=== PATIENT | female | born 1950 | race Caucasian/White ===

== ENCOUNTER 2018-07-06 10:45 | Observation (INO) | payer MEDICARE, OTHER ==
[~2018-07-06] VITALS: Ht 165.1 cm; Wt 128.2 kg
--- NOTE | 2018-07-06 10:45 | NUR ---
Upon EMS arrival, pt taken straight to CT.
--- NOTE | 2018-07-06 11:07 | Diagnostic Imaging Report ---
Exam: Head CT without contrast History: Slurred speech. Comparison studies: None Technique: Axial images were obtained from the skull base to the vertex. Coronal and sagittal images reconstructed from the axial data. Dose modulation, iterative reconstruction, and/or weight based adjustment of the mA/kV was utilized to reduce the radiation dose to as low as reasonably achievable. Radiation dose: Total DLP: 921 mGy*cm. Estimated effective dose: DLP x 0.015 Intravenous contrast: None Findings: Scalp: No abnormalities. Bones: No fractures, blastic or lytic lesions. Brain sulci: Appropriate for age. Ventricles: Normal in size and configuration. No hydrocephalus. Extra-axial spaces: No masses, no fluid collection. Parenchyma: No abnormal densities. No masses, hemorrhage, acute or chronic vascular insults. Sellar/suprasellar region: No abnormalities. Craniocervical junction: Patent foramen magnum. No Chiari one malformation. Incidental findings: Calcified atherosclerosis in the carotid siphons and distal basilar artery. IMPRESSION: 1. No acute intracranial abnormalities. 2. Specifically, no mass, acute hemorrhage or cortical infarct. Signed by: Dr. Denis Amaro M.D. on 07/06/2018 11:03 AM
[2018-07-06 11:43] LABS: BASOPHILS % 0.3 % (0.0-1.0); EOSINOPHILS # (AUTO) 0.2 (0.0-0.4); EOSINOPHILS % 2.2 % (0.0-6.0); HEMATOCRIT 40.9 % (34.2-44.1); HEMOGLOBIN 13.4 g/dL (12.0-16.0); LYMPHOCYTES # (AUTO) 1.9 (1.0-3.2); LYMPHOCYTES % 28.9 % (18.0-39.1); MEAN CORPUSCULAR HEMOGLOBIN 28.6 pg (28-32); MEAN CORPUSCULAR HGB CONC 32.8 g/dL (31-35); MEAN CORPUSCULAR VOLUME 87.4 fL (81-99); MONOCYTES # (AUTO) 0.6 (0.2-0.8); MONOCYTES % 9.3 % (4.4-11.3); NEUTROPHILS # (AUTO) 3.9 (2.1-6.9); PLATELET COUNT 198 x10e3/uL (140-360); RED BLOOD COUNT 4.68 x10e6/uL (3.6-5.1); RED CELL DISTRIBUTION WIDTH 12.8 % (11.7-14.4)
[2018-07-06 11:52] LABS: INR 0.91; PROTHROMBIN TIME 13.1 seconds (11.9-14.5)
[2018-07-06] MEDS ORDERED: KETOROLAC TROMETHAMINE 30 MG/ML VIAL IV ONE (12:00)
[2018-07-06] MEDS ORDERED: ONDANSETRON HCL INJ 2MG/ML 2ML 2 MG/ML VIAL IV ONE (12:00)
[2018-07-06 12:07] LABS: ALANINE AMINOTRANSFERASE 13 IU/L (0-55); ALBUMIN 3.7 g/dL (3.5-5.0); ALKALINE PHOSPHATASE 65 IU/L (40-150); ANION GAP 13.6 mmol/L (8-16); BLOOD UREA NITROGEN 16 mg/dL (7-26); BUN/CREATININE RATIO 22 (6-25); CALCIUM 9.3 mg/dL (8.4-10.2); CARBON DIOXIDE 24 mmol/L (22-29); CHLORIDE 104 mmol/L (98-107); CREATINE KINASE 74 IU/L (29-168); CREATININE, SERUM 0.74 mg/dL (0.57-1.11); EST GLOMERULAR FILTRATION RATE > 60 ML/MIN (60-); GLUCOSE 88 mg/dL (74-118); POTASSIUM 3.6 mmol/L (3.5-5.1); SODIUM 138 mmol/L (136-145)
[2018-07-06 12:23] LABS: CLARITY,URINE SL CLOUDY (CLEAR); COLOR,URINE YELLOW (YELLOW)
[2018-07-06 12:24] LABS: BILIRUBIN,URINE 1+ (NEGATIVE); KETONES,URINE NEGATIVE (NEGATIVE); LEUKOCYTE ESTERASE ,URINE NEGATIVE (NEGATIVE); NITRITE,URINE NEGATIVE (NEGATIVE); PROTEIN,URINE DIPSTICK NEGATIVE (NEGATIVE); URINE UROBILINOGEN 0.2 mg/dL (0.2 - 1)
[2018-07-06 12:28] LABS: THYROID STIMULATING HORMONE 1.945 uIU/mL (0.350-4.940)
--- NOTE | 2018-07-06 12:30 | Diagnostic Imaging Report ---
EXAMINATION: CHEST SINGLE (PORTABLE) INDICATION: Slurred speech. COMPARISON: None FINDINGS: TUBES and LINES: None. LUNGS: Mild elevation of the right hemidiaphragm. Single surgical clip projected on the lower right hemithorax. Mild prominence of the pulmonary vasculature may be due to technique. There is no evidence of pneumonia or pulmonary edema. PLEURA: No pleural effusion or pneumothorax. HEART AND MEDIASTINUM: The cardiomediastinal silhouette is mildly enlarged. BONES AND SOFT TISSUES: No acute osseous lesion. Soft tissues are unremarkable. UPPER ABDOMEN: No free air under the diaphragm. IMPRESSION: Mild cardiomegaly. Possible mild bilateral pulmonary venous congestion. Signed by: Dr. Mikey Diaz M.D. on 07/06/2018 12:27 PM
[2018-07-06 13:14] LABS: AMORPHOUS SEDIMENT,URINE MODERATE (FEW); BACTERIA,URINE MANY /HPF; EPITHELIAL CELLS,URINE MODERATE /LPF; RBC,URINE 0-5 /HPF (0-5)
[2018-07-06] MEDS ORDERED: SODIUM CHLORIDE 0.9% 1000ML 1,000 ML IV ONE (13:45)
[2018-07-06] MEDS ORDERED: ONDANSETRON HCL INJ 2MG/ML 2ML 2 MG/ML VIAL IV PRN (13:45)
[2018-07-06] MEDS ORDERED: ASPIRIN 81 MG CHEW TAB PO ONE (14:00)
--- OUTSIDE RECORDS SUMMARY | 2018-07-06 14:34 | XMS REPORT ---
Author [facility] Address Unknown Phone Unavailable Care Team Providers Care Solar Manufacturer'S Representative Name Role Phone Silvia BENSON Unavailable Unavailable Problems This patient has no known problems. Allergies, Adverse Reactions, Alerts This patient has no known allergies or adverse reactions. Medications This patient has no known medications. Results Test Description Test Time Test Comments Text Results Atomic Results Result Comments CHEST SINGLE (PORTABLE) 2018-07-06 12:26:00 [place] [address] Patient Name: JATIN REAL MR #: [id number] : 1950 Age/Sex: 67/F Req #: [id number] Adm Physician: Ordered by: SERA GELLER COLOR LABORATORY TECHNICIAN Report #: [id number] Location: ER Room/Bed: Procedure: [id number] DX/CHEST SINGLE (PORTABLE) Exam Date: 07/06/18 Exam Time: 1110 REPORT STATUS: Signed EXAMINATION: CHEST SINGLE (PORTABLE) CITLALLI CATION: Slurred speech. COMPARISON: None FINDINGS: TUBES and LINES: None. LUNGS: Mild elevation of the right hemidiaphragm. Single surgical clip projected on the lower right hemithorax. Mild prominence of the pulmonary vasculature may be due to technique. There is no evidence of pneumonia or pulmonary edema. PLEURA: No pleural effusion or pneumothorax. HEART AND MEDIASTINUM: The cardiomediastinal silhouette is mildly enlarged. BONES AND SOFT TISSUES: No acute osseous lesion. Soft tissues are unremarkable. UPPER ABDOMEN: No free air under the diaphragm. IMPRESSION: Mild cardiomegaly. Possible mild bilateral pulmonary venous congestion. Signed by: Dr. Mikey Ortega M.D. on 07/06/2018 12:27 PM Dictated By: AMBROSE ORTEGA MD, MD 26 Transcribed By: CONOR on 07/06/181226 COPY TO: SERA GELLER NP CT BRAIN WO 2018-07-06 10:58:00 [place] [address] Patient Name: JATIN REAL MR #: [id number] : 1950 Age/Sex: 67/F Req #: [id number] Adm Physician: Ordered by: SERA GELLER COLOR LABORATORY TECHNICIAN Report #: [id number] Location: ER Room/Bed: Procedure: [id number] CT/CT BRAIN WO Exam Date: 07/06/18 Exam Time: 1040 REPORT STATUS: Signed Exam: Head CT without contrast History: Slurred speech. Comparison studies: None Technique: Axial images were obtained from the skull base to the vertex. Coronal and sagittal images reconstructed from the axial data. Dose modulation, iterative reconstruction, and/or weight based adjustment of the mA/kV was utilized to reduce the radiation dose to as low as reasonably achievable. Radiation dose: Total DLP: 921 mGy*cm. Estimated effective dose: DLP x 0.015 Intravenous contrast: None Findings: Scalp: No abnormalities. Bones: No fractures, blastic or lytic lesions. Brain sulci: Appropriate for age. Ventricles: Normal in size and configuration. No hydrocephalus. Extra-axial spaces: No masses, no fluid collection. Parenchyma: No abnormal densities. No masses, hemorrhage, acute or chronic vascular insults. Sellar/suprasellar region: No abnormalities. Craniocervical junction: Patent foramen magnum. No Chiari one malformation. Incidental findings: Calcified atherosclerosis in the carotid siphons and distal basilar artery. IMPRESSION: 1. No acute intracranial abnormalities. 2. Specifically, no mass, acute hemorrhage or cortical infarct. Signed by: Dr. Carolina Amaro M.D. on 07/06/2018 11:03 AM Dictated By: CAROLINA AMARO MD 1103 Transcribed By: CONOR on 07/06/18 1103 COPY TO: SERA GELLER NP
--- NOTE | 2018-07-06 16:05 | Diagnostic Imaging Report ---
Examination: MRI BRAIN WITHOUT CONTRAST History: Slurred speech; acute expressive aphasia. Comparison studies: Head CT dated 07/06/2018 Technique: Sagittal T2; axial DWI, FLAIR, GRE or SWI, T1, Coronal FLAIR. Intravenous contrast: None Findings: Scalp: No abnormal signal. No masses. Bone marrow: Normal in signal intensity. Brain volume: Adequate for age. No volume loss. Ventricles: Normal in size and configuration. No hydrocephalus. Extra-axial spaces: No abnormalities. Parenchyma: There are several punctate and confluent areas of T2/FLAIR hyperintensity in the periventricular and subcortical white matter, nonspecific. No masses, hemorrhage, or acute vascular insults. Suprasellar and sellar region: No abnormalities. Craniocervical junction: No abnormalities. The foramen magnum is patent. No Chiari malformations. Vessels: Normal flow-voids in the arteries and sinuses. Additional findings:None. IMPRESSION: 1. No acute intracranial abnormalities, specifically, no acute infarct. 2. Mild chronic microvascular ischemic change. Signed by: Dr. Madisyn Samuels M.D. on 07/06/2018 4:02 PM
[2018-07-06 18:50] VITALS: BP 142/64
[2018-07-06 20:00] VITALS: BP 142/64
[2018-07-06] MEDS ORDERED: KETOROLAC TROMETHAMINE 60 MG/2 ML VIAL IM ONE (22:30)
[2018-07-06] MEDS: ACETAMINOPHEN 325 MG TAB PO PRN (22:34)
[2018-07-06 23:23] VITALS: BP 142/64
[2018-07-07] VITALS: BP 113/59
--- NOTE | 2018-07-07 00:32 | NUR ---
Rep Addendum: 07/07/18 at 0037 by Precious Galvan RN sandip lopez
--- NOTE | 2018-07-07 00:32 | NUR ---
Report received AM nurse.Patient admitted from ER by wheelchair @[phone]. Patient alert/oriented x3.Denied chest and no SOB. No respiratory distress noted. patient in the room. Head to toe assessment completed.No skin breakdown noted. Patient instructed to call for help as needed. Bed in lower position,locked. Call barrientos within reach. Will continue to monitor.
[2018-07-07 04:00] VITALS: BP 119/60
[2018-07-07] MEDS ORDERED: KETOROLAC TROMETHAMINE 60 MG/2 ML VIAL IM ONE (05:16)
[2018-07-07 05:48] LABS: BASOPHILS % 0.5 % (0.0-1.0); EOSINOPHILS # (AUTO) 0.2 (0.0-0.4); EOSINOPHILS % 2.7 % (0.0-6.0); HEMATOCRIT 38.5 % (34.2-44.1); HEMOGLOBIN 12.4 g/dL (12.0-16.0); LYMPHOCYTES # (AUTO) 1.7 (1.0-3.2); LYMPHOCYTES % 31.1 % (18.0-39.1); MEAN CORPUSCULAR HEMOGLOBIN 28.6 pg (28-32); MEAN CORPUSCULAR HGB CONC 32.2 g/dL (31-35); MEAN CORPUSCULAR VOLUME 88.7 fL (81-99); MONOCYTES # (AUTO) 0.5 (0.2-0.8); MONOCYTES % 9.3 % (4.4-11.3); NEUTROPHILS # (AUTO) 3.1 (2.1-6.9); NEUTROPHILS % 56.2 % (38.7-80.0); PLATELET COUNT 190 x10e3/uL (140-360); RED BLOOD COUNT 4.34 x10e6/uL (3.6-5.1); RED CELL DISTRIBUTION WIDTH 12.7 % (11.7-14.4)
[2018-07-07 06:08] LABS: ALANINE AMINOTRANSFERASE 11 IU/L (0-55); ALBUMIN 3.3 g/dL (3.5-5.0); ALBUMIN/GLOBULIN RATIO 1.1 (0.8-2.0); ALKALINE PHOSPHATASE 57 IU/L (40-150); ANION GAP 12.9 mmol/L (8-16); BLOOD UREA NITROGEN 15 mg/dL (7-26); BUN/CREATININE RATIO 21 (6-25); CARBON DIOXIDE 26 mmol/L (22-29); CHLORIDE 104 mmol/L (98-107); CREATININE, SERUM 0.72 mg/dL (0.57-1.11); EST GLOMERULAR FILTRATION RATE > 60 ML/MIN (60-); GLUCOSE 99 mg/dL (74-118); POTASSIUM 3.9 mmol/L (3.5-5.1); SODIUM 139 mmol/L (136-145)
[2018-07-07 06:30] LABS: CHOL/HDL RATIO 3.1 (3.0-3.6)
--- NOTE | 2018-07-07 06:45 | NUR ---
rounded with night court magistrate nurse, patient aware of change and in no distress. Call barrientos within reach and bed in lowest position
--- NOTE | 2018-07-07 07:16 | NUR ---
Report given to AM CHRIS Eisenberg,walking round done.
[2018-07-07 07:50] VITALS: BP 126/60
[2018-07-07 08:00] VITALS: BP 126/60
[2018-07-07] MEDS ORDERED: ASPIRIN 81 MG ENTERIC COATED PO SCH (09:00)
[2018-07-07] MEDS: ACETAMINOPHEN 325 MG TAB PO PRN (11:27)
[2018-07-07 12:00] VITALS: BP 131/65
--- NOTE | 2018-07-07 12:50 | NUR ---
SOCIAL WORK INITIAL ASSESSMENT Slag Production Worker to bedside to discuss plan of care with patient/family. CM/SW role and care transitions discussed. Anticipated discharge plan discussed along with duration of care. CM/SW discussed patients right to make decisions in care. CM/SW work hours given. Patient lives: IN HOUSE WITH FAMILY Admit/Transfer: VIA ED POA/Emergency contact: JUSTINA [phone] DAUGHTER CHATO ACEVEDO [phone] Current/Previous Home Health: NONE PCP/Follow-up Care: Phan REYNOLDS Current/Previous DME: NONE Other Services: LAST HOSPITALIZATION JULY OF 2017 Employment Status: [employer] Areas of Concerns: NONE Referral Needs: NONE Education Needs: NONE IMM/YOON given and signed (if applicable): YOON Goal for discharge: RETURN HOME CM/SW left business card at the bedside with contact information. Name and number was also written on the patients whiteboard. Patient verbalized understanding of discussion. CM will follow-up with ongoing discharge and transition of care needs.
--- NOTE | 2018-07-07 12:52 | NUR ---
POST DISCHARGE STATUS FORM FILED IN FRONT OF CHART WITH NO NEEDS TO RETURN HOME
--- NOTE | 2018-07-07 13:22 | NUR ---
Discharge instructions given to patient, patient verbalized understanding. IV discontinued at this time, catheter in tact and small dressing applied. Patient escorted from floor via wheelchair to personal auto for to drive home.
--- NOTE | 2018-07-08 00:02 | Discharge Summary ---
PRIMARY CARE DOCTOR: Neelima Garcia MD, [facility]. FINAL DIAGNOSIS: Transient ischemic attack. SECONDARY DIAGNOSIS: Morbid obesity. CONSULTANTS: None. PROCEDURES/STUDIES PERFORMED 1. MRI of the brain. 2. Head CT. 3. Echocardiogram. 4. Carotid ultrasound. HISTORY: Per H and P. HOSPITAL COURSE: Patient was started on aspirin. Her slurred speech did not recur. There was no atrial fibrillation on telemetry. Carotid ultrasound was benign. Echocardiogram was unremarkable as well. MRI did not show acute disease either. Patient was instructed to start on an aspirin a day. Her LDL is 82. I will leave it up to her primary care doctor's discretion as far as whether to start a statin since this is borderline. Patient was seen and examined today. CONDITION ON DISCHARGE: Stable. DISCHARGE MEDICATIONS: Please see medication reconciliation form. MONICA CABEZAS M.D. Job#: [id number] cc:NEELIMA GARCIA MD
== END 2018-07-07 13:22 | disposition home or self-care (01) ==
LOC: ER 10:45 → ERHOLD 14:32 → IMCU 18:50
PROVIDERS: ADMIT Internal Medicine; ATTEND Internal Medicine
DX: G45.9 Transient cerebral ischemic attack, unspecified (principal); E66.01 Morbid (severe) obesity due to excess calories; Z68.42 Body mass index [BMI] 45.0-49.9, adult
CPT/HCPCS: 36415 ×2; 70450; 70551; 71045; 80053 ×2; 80061; 81001; 82550; 82553; 83036; 83880; 84443; 84484; 85025 ×2; 85610; 85730; 87086; 93005; 93306; 93880; 97161; 99284; G0378 ×2; J1885 ×2; J2405 ×2

== ENCOUNTER 2018-07-10 18:34 | Emergency (ER) | payer MEDICARE ==
[~2018-07-10] VITALS: Ht 165.1 cm; Wt 127.9 kg
[2018-07-10] MEDS ORDERED: SODIUM CHLORIDE 0.9% 1000ML 1,000 ML IV SCH (19:30)
[2018-07-10] MEDS ORDERED: DIPHENHYDRAMINE HCL INJ 50 MG/ML VIAL IV ONE (19:30)
[2018-07-10] MEDS ORDERED: METOCLOPRAMIDE HCL 10 MG/2ML VIAL IV ONE (19:30)
[2018-07-10] MEDS ORDERED: KETOROLAC TROMETHAMINE 30 MG/ML VIAL IV ONE (20:00)
--- NOTE | 2018-07-10 20:00 | Diagnostic Imaging Report ---
EXAMINATION: CHEST 2 VIEWS INDICATION: CVA WORK UP COMPARISON: Chest x-ray 07/06/2018 FINDINGS: PA and lateral views TUBES and LINES: None. LUNGS: Lungs are well inflated. 1.2 cm nodule opacity overlies the right lung base. There is no evidence of pneumonia or pulmonary edema. PLEURA: No pleural effusion or pneumothorax. HEART AND MEDIASTINUM: The cardiomediastinal silhouette is unremarkable. BONES AND SOFT TISSUES: There are degenerative changes in the thoracic spine. Surgical clips in the anterior right chest soft tissues. UPPER ABDOMEN: No free air under the diaphragm. There are cholecystectomy clips. IMPRESSION: No acute thoracic abnormality. Nodular opacity overlying the right lung base may represent a pulmonary nodule and can be further evaluated with nonemergent chest CT without contrast. Signed by: DR. Conrad Wilson MD on 07/10/2018 7:57 PM
[2018-07-10 20:05] LABS: BASOPHILS % 0.4 % (0.0-1.0); EOSINOPHILS # (AUTO) 0.1 (0.0-0.4); EOSINOPHILS % 1.7 % (0.0-6.0); HEMOGLOBIN 13.9 g/dL (12.0-16.0); LYMPHOCYTES # (AUTO) 1.8 (1.0-3.2); LYMPHOCYTES % 24.9 % (18.0-39.1); MEAN CORPUSCULAR HEMOGLOBIN 28.7 pg (28-32); MEAN CORPUSCULAR HGB CONC 33.9 g/dL (31-35); MEAN CORPUSCULAR VOLUME 84.7 fL (81-99); MONOCYTES # (AUTO) 0.5 (0.2-0.8); MONOCYTES % 7.6 % (4.4-11.3); NEUTROPHILS # (AUTO) 4.7 (2.1-6.9); NEUTROPHILS % 65.3 % (38.7-80.0); PLATELET COUNT 204 x10e3/uL (140-360); RED BLOOD COUNT 4.84 x10e6/uL (3.6-5.1); RED CELL DISTRIBUTION WIDTH 12.6 % (11.7-14.4)
[2018-07-10 20:11] LABS: INR 0.91; PROTHROMBIN TIME 13.1 seconds (11.9-14.5)
[2018-07-10 20:12] LABS: PARTIAL THROMBOPLASTIN TIME 28.7 seconds (23.8-35.5)
[2018-07-10 20:21] LABS: ALANINE AMINOTRANSFERASE 12 IU/L (0-55); ALBUMIN 3.9 g/dL (3.5-5.0); ALBUMIN/GLOBULIN RATIO 1.2 (0.8-2.0); ALKALINE PHOSPHATASE 62 IU/L (40-150); ANION GAP 17.6 mmol/L (8-16); BLOOD UREA NITROGEN 11 mg/dL (7-26); BUN/CREATININE RATIO 15 (6-25); CALCIUM 9.7 mg/dL (8.4-10.2); CARBON DIOXIDE 22 mmol/L (22-29); CHLORIDE 106 mmol/L (98-107); CREATININE, SERUM 0.72 mg/dL (0.57-1.11); EST GLOMERULAR FILTRATION RATE > 60 ML/MIN (60-); GLUCOSE 84 mg/dL (74-118); POTASSIUM 3.6 mmol/L (3.5-5.1); SODIUM 142 mmol/L (136-145)
[2018-07-10 20:45] LABS: CREATINE KINASE 66 IU/L (29-168)
--- NOTE | 2018-07-10 21:16 | Diagnostic Imaging Report ---
Exam: Head CT without contrast History: TIA, stroke Comparison studies: Brain MRI and head CT of MRI 07/06/2018 Technique: Axial images were obtained from the skull base to the vertex. Coronal and sagittal images reconstructed from the axial data. Dose modulation, iterative reconstruction, and/or weight based adjustment of the mA/kV was utilized to reduce the radiation dose to as low as reasonably achievable. Radiation dose: Total DLP: 921 mGy*cm. Estimated effective dose: DLP x 0.015 Intravenous contrast: None Findings: Scalp: No abnormalities. Bones: No fractures, blastic or lytic lesions. Brain sulci: Appropriate for age. Ventricles: Normal in size and configuration. No hydrocephalus. Extra-axial spaces: No masses, no fluid collection. Parenchyma: No mass, acute hemorrhage or acute or chronic cortical vascular infarcts. Mild chronic microvascular ischemic changes in the supratentorial white matter are seen to better advantage on the prior MRI. Sellar/suprasellar region: No abnormalities. Craniocervical junction: Patent foramen magnum. No Chiari one malformation. Incidental findings: Calcified atherosclerosis in the carotid siphons and distal basilar artery. IMPRESSION: 1. No acute intracranial abnormalities. Specifically, no acute hemorrhage or acute cortical infarct. 2. No changes from the prior head CT of 07/06/2018. Signed by: Dr. Denis Amaro M.D. on 07/10/2018 9:12 PM
== END 2018-07-10 22:00 | disposition left against medical advice (07) ==
LOC: ER 18:34
DX: G43.111 Migraine with aura, intractable, with status migrainosus (principal)
CPT/HCPCS: 36415; 70450; 71046; 80053; 82550; 82553; 83735; 84484; 85025; 85610; 85730

== ENCOUNTER 2021-06-15 20:06 | Emergency (ER) | payer MEDICARE ==
[~2021-06-15] VITALS: Ht 165.1 cm; Wt 127.9 kg
[2021-06-15] MEDS ORDERED: BACITRACIN ZINC 0.9GM TP ONE ×2 (21:00→21:15)
[2021-06-15] MEDS ORDERED: LIDOCAINE 1% W/EPINEPHRINE 20 ML VIAL INJ ONE (21:00)
== END 2021-06-15 21:20 | disposition home or self-care (01) ==
LOC: FSED 20:15
DX: S91.312A Laceration without foreign body, left foot, initial encounter (principal); W25.XXXA Contact with sharp glass, initial encounter; Y92.008 Other place in unspecified non-institutional (private) residence as the place of occurrence of the external cause; Z85.3 Personal history of malignant neoplasm of breast; Z86.73 Personal history of transient ischemic attack (TIA), and cerebral infarction without residual deficits
CPT/HCPCS: 99283